=== PATIENT | male | born 1995 | race Two or more races ===

== ENCOUNTER 2025-03-11 23:42 | Emergency (ER) | payer MEDICAID, SELFPAY ==
[2025-03-11 23:51] VITALS: BP 111/64; PULSE 82; RESP 17; TEMP 36.9; O2SAT 96
[2025-03-12 00:03] VITALS: BP 110/67; PULSE 71; RESP 18; O2SAT 96
[2025-03-12 00:04] VITALS: PULSE 90; RESP 16; O2SAT 99; BMI 23.1
--- NOTE | 2025-03-12 00:08 | EDNOTE_ITS ---
ED Medical Clearance RME/HPI General Stated complaint: CORRECTION CLEARANCE Time Seen by Provider: 03/11/25 23:50 Arrival date/time: 03/11/25 23:42 RME / HPI RME / HPI Narrative: Dr. Scott?s Main ED Evaluation: 29yo male FERNANDO accompanied by TCSO presents to the ED for a medical clearance. Patient was brought in for medical clearance due to being intoxicated. No other complaints reported at this time. NKA. Related Information Allergies Allergy/AdvReac Type Severity Reaction Status Date / Time NKA* Allergy Uncoded 04/18/15 15:03 Review of Systems Review of Systems Systems Reviewed: All systems reviewed, normal except as documented ED Exam Narrative Physical exam: GENERAL APPEARANCE: alert and oriented x 4, appears intoxicated, well- developed, well-nourished, no acute distress VITALS: All vitals were reviewed and the pulse ox is 96% on room air, which is normal according to my interpretation. HEENT: Normocephalic, 2 cm irregular laceration to the left eyebrow; pupils equal, round, reactive to light; EOMI; mucous membranes pink, moist; oropharynx clear NECK: Supple LUNGS: CTABL; no wheezes, no rales, no rhonchi HEART: Regular rate, regular rhythm; normal S1, S2; no murmurs ABDOMEN: non distended; normal BS; soft, no tenderness, no guarding, no rebound; no masses, no organomegaly, no hernia BACK: no CVA tenderness EXTREMITIES: atraumatic; no edema NEUROLOGIC: awake; alert and oriented x4; cranial nerves II-XII grossly intact; no focal sensory or motor deficits PSYCHIATRIC: appropriate mood and affect SKIN: warm, dry, normal color; no rashes Course Quality Measures none Vital Signs Vital signs: Vital Signs Temperature 98.4 F 03/11/25 23:51 Pulse Rate 82 03/11/25 23:51 Respiratory Rate 17 03/11/25 23:51 Blood Pressure 111/64 03/11/25 23:51 Pulse Oximetry (%) 96 03/11/25 23:51 Oxygen Delivery Method Room Air 03/11/25 23:51 PROCEDURES: Procedure Comment Patient's 2 cm irregular laceration to his left eyebrow was irrigated extensively prior to having 8 steri strips placed. Medical Clearance MDM Narrative MDM Narrative:: Scribe Attestation: 03/12/25 Theresa Borjas am scribing for and in the presence of Dr. Scott. Patient data External records reviewed:: [facility] previous records (Per chart review, patient has no previous ED visits or admissions to this facility.) and EMS form Clinical information provided by:: law enforcement Social determinants that could affect healthcare access:: none Patient has the following chronic illnesses:: none How is presenting disease/condition affected by chronic disease/condition?: no chronic disease Evaluation data The following diagnostics were reviewed and interpreted by me:: other (specify) (none) Lab and/or radiology exams considered but not ordered:: none Interpretation Summary: none Medications / Prescriptions Medications or Prescriptions considered but not ordered:: none Medication administrations:: none Consultations Consultation(s) initiated? (list below): No Diagnosis Medical Clearance Differential Diagnosis: other (laceration, alcohol intoxication, drug use) Most likely diagnosis given after review of the tests above:: see clinical impression below Admission Indicated Admission indicated?: not indicated Admission Request Was there a request for admission?: No Disposition Plan Disposition Plan: Discharge Discharge Attestation Discharge Attestation: The patient and all family members were given an opportunity to ask questions and understood the discharge instructions. Discharge instructions specifically effects, indications for sooner follow up or return to the emergency department, and the expected course of current diagnosis. Patient condition: Stable Discharge Plan Plan Patient Disposition: HOME (Self Care) Discharge Disposition comment: okay to book Prescriptions/Referrals Referrals: No Primary/Family,Physician [Primary Care Provider] - In 1 week Problem List Clinical Impression: Alcohol intoxication, Facial laceration Patient/Caregiver Discharge Instructions Education Materials: ED Alcohol Intoxication, ED Laceration, Face: Stitches or Tape Print Language: Lithuanian Stand Alone Forms: Nidia Award Info., Patient Portal Info Letter
== END 2025-03-12 01:32 | disposition home or self-care (01) ==
PROVIDERS: Emergency Provider Emergency Medicine
DX: Z02.89 Encounter for other administrative examinations (principal); S01.112A Laceration without foreign body of left eyelid and periocular area, initial encounter; F10.129 Alcohol abuse with intoxication, unspecified; Y90.9 Presence of alcohol in blood, level not specified; X58.XXXA Exposure to other specified factors, initial encounter
CPT/HCPCS: 99281